=== PATIENT | female | born 1950 | race Caucasian/White ===

== ENCOUNTER 2024-05-15 11:07 | Outpatient (CLI) | payer MEDICARE, OTHER, SELFPAY ==
--- OUTSIDE RECORDS SUMMARY | 2024-05-15 12:01 | XMS_ITS | Encounter Summary ---
Author Organization [employer] Address [address] [place] [address] Care Team Providers Care Management Instructor Name Role Phone Santos Morgan MD Primary Care Provider Un available Encounter Details Date Type Department Care Team (Latest Contact Info) Description 04/04/2005 Inpatient Historical [facility] Chano Ghotra MD NO ADDRESS ON FILE ACQ SPONDYLOLISTHESIS (Primary Dx) Social History Tobacco Use Types Packs/Day Years Used Date Smoking Tobacco: Never Assessed Comments Unknown Sex and Gender Information Value Date Recorded Sex Assigned at Not on file Legal Sex Female 5:02 AM DOGMAN/WOMAN Gender Identity Not on file Sexual Orientation Not on file documented as of this encounter Plan of Treatment Not on file documented as of this encounter Procedures Procedure Name Priority Date/Time Associated Diagnosis Comments URINALYSIS W/REFLEX MICROSCOPIC Routine 04/06/2005 5:39 PM DOGMAN/WOMAN CBC WITH DIFFERENTIAL Routine 04/06/2005 5:40 AM DOGMAN/WOMAN CBC WITH DIFFERENTIAL Routine 04/06/2005 5:40 AM DOGMAN/WOMAN BASIC METABOLIC PANEL Routine 04/06/2005 5:40 AM DOGMAN/WOMAN CBC WITH DIFFERENTIAL Routine 04/05/2005 4:40 AM DOGMAN/WOMAN CBC WITH DIFFERENTIAL Routine 04/05/2005 4:40 AM DOGMAN/WOMAN BASIC METABOLIC PANEL Routine 04/05/2005 4:40 AM DOGMAN/WOMAN PT AND APTT Routine 04/04/2005 11:50 AM DOGMAN/WOMAN CBC WITH DIFFERENTIAL Routine 04/04/2005 11:50 AM DOGMAN/WOMAN CBC WITH DIFFERENTIAL Routine 04/04/2005 11:50 AM DOGMAN/WOMAN SEDIMENTATION RATE Routine 04/04/2005 11 :50 AM DOGMAN/WOMAN COMPREHENSIVE METABOLIC PANEL Routine 04/04/2005 11:50 AM DOGMAN/WOMAN URINALYSIS W/REFLEX MICROSCOPIC Routine 04/04/2005 11:47 AM DOGMAN/WOMAN HEMOGLOBIN AND HEMATOCRIT Routine 03/27/2005 12:39 PM DOGMAN/WOMAN documented in this encounter Results * (ABNORMAL) URINALYSIS (04/06/2005 5:39 PM DOGMAN/WOMAN) COLOR UA Yellow INTERFACE SYSTEM CLARITY UA Clear Clear INTERFACE SYSTEM SPECIFIC GRAVITY UA 1.010 1.001 - 1.035 INTERFACE SYSTEM PH UA 7.5 5.0 - 8.0 INTERFACE SYSTEM LEUKOCYTE ESTERASE UA Negative Negative INTERFACE SYSTEM NITRITE UA Negative Negative INTERFACE SYSTEM PROTEIN UA Negative Negative INTERFACE SYSTEM GLUCOSE UA Negative Negative INTERFACE SYSTEM KETONES UA Negative Negative INTERFACE SYSTEM UROBILINOGEN UA <1 <1 mg/dL INTE RFACE SYSTEM BILIRUBIN UA Negative Negative INTERFA CE SYSTEM BLOOD UA 1+(A) Negative INTERFACE SYSTEM WBC UA 1 0 - 5 /HPF INTERFACE SYSTEM RBC UA 5(H) 0 - 4 /HPF INTERFACE SYSTEM 04/06/2005 5:39 PM DOGMAN/WOMAN Abner Huynh MD URINE ORDERABLES Final Result INTERFACE SYSTEM Refer to clinic/hospital department * (ABNORMAL) CBC WITH DIFFERENTIAL (04/06/2005 5:40 AM DOGMAN/WOMAN) NEUTROPHILS 72(H) 45 - 70 % INTERFAC E SYSTEM LYMPHOCYTES 19 16 - 45 % INTERFAC E SYSTEM MONOCYTES 8 3 - 13 % INTERFACE SYSTEM EOSINOPHILS 1 0 - 7 % INTERFAC E SYSTEM BASOPHILS 0 0 - 2 % INTERFACE SYSTEM NEUTROPHIL ABSOLUTE 6.43 1.90 - 7.00 K/uL INTERFACE SYSTEM LYMPHOCYTE ABSOLUTE 1.72 0.70 - 4.50 K/uL INTERFACE SYSTEM MONOCYTE ABSOLUTE 0.73 0.10 - 1.30 K/uL INTERFACE SYSTEM EOSINOPHIL ABSOLUTE 0.07 0.00 - 0.70 K/uL INTERFACE SYSTEM BASOPHILS ABSOLUTE 0.01 0.00 - 0.20 K/uL INTERFACE SYSTEM 04/06/2005 5:40 AM DOGMAN/WOMAN Abner Huynh MD HEMATOLOGY ORDERABLES Final Res ult Performing Organization Address City/[facility] de Phone Number INTERFACE SYSTEM Refer to clinic/hospital department * (ABNORMAL) CBC WITH DIFFERENTIAL (04/06/2005 5:40 AM DOGMAN/WOMAN) WBC 9.0 4.0 - 9.8 K/uL INTERFACE SYSTEM RBC 3.04(L) 3.90 - 4.90 M/uL INTERFACE SYSTEM HEMOGLOBIN 9.3(L) 11.8 - 14.8 g/dL INTERFACE SYSTEM HEMATOCRIT 28.3(L) 35.5 - 44.0 % INTERFACE SYSTEM MCV 93.1 82.0 - 99.0 fL INTERFACE SYSTEM MCH 30.6 27.2 - 32.6 pg INTERFACE SYSTEM MCHC 32.9 31.5 - 35.5 % INTERFACE SYSTEM RDW 13.8 11.5 - 14.5 % INTERFACE SYSTEM RDW-STDEV 46.6 37.1 - 48.7 fL INTERFACE SYSTEM PLATELETS 194 140 - 350 K/uL INTERFACE SYSTEM MPV 11.1 9.3 - 12.4 fL INTERFACE SYSTEM 04/06/2005 5:40 AM DOGMAN/WOMAN Abner Huynh MD HEMATOLOGY ORDERABLES Final Res ult Performing Organization Address [facility] de Phone Number INTERFACE SYSTEM Refer to clinic/hospital department * (ABNORMAL) BASIC METABOLIC PANEL (04/06/2005 5:40 AM DOGMAN/WOMAN) GLUCOSE 109 65 - 109 mg/dL INTERFACE SYSTEM CREATININE 0.8 0.4 - 1.2 mg/dL INTERFACE SYSTEM CALCIUM 8.3(L) 8.6 - 10.2 mg/dL INTERFACE SYSTEM BUN 9 6 - 20 mg/dL INTERFACE SYSTEM SODIUM 141 135 - 145 mmol/L INTERFACE SYSTEM POTASSIUM 4.0 3.5 - 4.9 mmol/L INTERFACE SYSTEM CHLORIDE 106 96 - 108 mmol/L INTERFACE SYSTEM CO2 29 22 - 30 mmol/L INTERFACE SYSTEM 04/06/2005 5:40 AM DOGMAN/WOMAN Abner Huynh MD CHEMISTRY ORDERABLES Final Resu lt Performing Organization Address [facility] Phone Number INTERFACE SYSTEM Refer to clinic/hospital department * (ABNORMAL) CBC WITH DIFFERENTIAL (04/05/2005 4:40 AM DOGMAN/WOMAN) NEUTROPHILS 75(H) 45 - 70 % INTERFAC E SYSTEM LYMPHOCYTES 19 16 - 45 % INTERFAC E SYSTEM MONOCYTES 6 3 - 13 % INTERFACE SYSTEM EOSINOPHILS 1 0 - 7 % INTERFAC E SYSTEM BASOPHILS 0 0 - 2 % INTERFACE SYSTEM NEUTROPHIL ABSOLUTE 5.48 1.90 - 7.00 K/uL INTERFACE SYSTEM LYMPHOCYTE ABSOLUTE 1.37 0.70 - 4.50 K/uL INTERFACE SYSTEM MONOCYTE ABSOLUTE 0.41 0.10 - 1.30 K/uL INTERFACE SYSTEM EOSINOPHIL ABSOLUTE 0.04 0.00 - 0.70 K/uL INTERFACE SYSTEM BASOPHILS ABSOLUTE 0.01 0.00 - 0.20 K/uL INTERFACE SYSTEM 04/05/2005 4:40 AM DOGMAN/WOMAN Abner Huynh MD HEMATOLOGY ORDERABLES Final Res ult Performing Organization Address [facility] Phone Number INTERFACE SYSTEM Refer to clinic/hospital department * (ABNORMAL) CBC WITH DIFFERENTIAL (04/05/2005 4:40 AM DOGMAN/WOMAN) WBC 7.3 4.0 - 9.8 K/uL INTERFACE SYSTEM RBC 2.84(L) 3.90 - 4.90 M/uL INTERFACE SYSTEM HEMOGLOBIN 8.9(L) 11.8 - 14.8 g/dL INTERFACE SYSTEM HEMATOCRIT 26.3(L) 35.5 - 44.0 % INTERFACE SYSTEM MCV 92.6 82.0 - 99.0 fL INTERFACE SYSTEM MCH 31.3 27.2 - 32.6 pg INTERFACE SYSTEM MCHC 33.8 31.5 - 35.5 % INTERFACE SYSTEM RDW 13.4 11.5 - 14.5 % INTERFACE SYSTEM RDW-STDEV 45.6 37.1 - 48.7 fL INTERFACE SYSTEM PLATELETS 206 140 - 350 K/uL INTERFACE SYSTEM MPV 10.7 9.3 - 12.4 fL INTERFACE SYSTEM 04/05/2005 4:40 AM DOGMAN/WOMAN Abner Huynh MD HEMATOLOGY ORDERABLES Final Res ult Performing Organization Address City/[facility]/ZIP Co de Phone Number INTERFACE SYSTEM Refer to clinic/hospital department * (ABNORMAL) BASIC METABOLIC PANEL (04/05/2005 4:40 AM DOGMAN/WOMAN) GLUCOSE 90 65 - 109 mg/dL INTERFACE SYSTEM CREATININE 0.8 0.4 - 1.2 mg/dL INTERFACE SYSTEM CALCIUM 8.7 8.6 - 10.2 mg/dL INTERFACE SYSTEM BUN 9 6 - 20 mg/dL INTERFACE SYSTEM SODIUM 140 135 - 145 mmol/L INTERFACE SYSTEM POTASSIUM 4.2 3.5 - 4.9 mmol/L INTERFACE SYSTEM CHLORIDE 105 96 - 108 mmol/L INTERFACE SYSTEM CO2 32(H) 22 - 30 mmol/L INTERFACE SYSTEM 04/05/2005 4:40 AM DOGMAN/WOMAN Abner Huynh MD CHEMISTRY ORDERABLES Final Resu lt Performing Organization Address [facility] Phone Number INTERFACE SYSTEM Refer to clinic/hospital department * CBC WITH DIFFERENTIAL (04/04/2005 11:50 AM DOGMAN/WOMAN) NEUTROPHILS 70 45 - 70 % INTERFAC E SYSTEM LYMPHOCYTES 23 16 - 45 % INTERFAC E SYSTEM MONOCYTES 5 3 - 13 % INTERFACE SYSTEM EOSINOPHILS 2 0 - 7 % INTERFAC E SYSTEM BASOPHILS 0 0 - 2 % INTERFACE SYSTEM NEUTROPHIL ABSOLUTE 4.47 1.90 - 7.00 K/uL INTERFACE SYSTEM LYMPHOCYTE ABSOLUTE 1.50 0.70 - 4.50 K/uL INTERFACE SYSTEM MONOCYTE ABSOLUTE 0.34 0.10 - 1.30 K/uL INTERFACE SYSTEM EOSINOPHIL ABSOLUTE 0.11 0.00 - 0.70 K/uL INTERFACE SYSTEM BASOPHILS ABSOLUTE 0.01 0.00 - 0.20 K/uL INTERFACE SYSTEM 04/04/2005 11:5 0 AM DOGMAN/WOMAN Chano Ghotra MD HEMATOLOGY ORDERABLES Final Res ult Performing Organization Address [facility] de Phone Number INTERFACE SYSTEM Refer to clinic/hospital department * CBC WITH DIFFERENTIAL (04/04/2005 11:50 AM DOGMAN/WOMAN) WBC 6.4 4.0 - 9.8 K/uL INTERFACE SYSTEM RBC 4.17 3.90 - 4.90 M/uL INTERFACE SYSTEM HEMOGLOBIN 13.0 11.8 - 14.8 g/dL INTERFACE SYSTEM HEMATOCRIT 38.6 35.5 - 44.0 % INTERFACE SYSTEM MCV 92.6 82.0 - 99.0 fL INTERFACE SYSTEM MCH 31.2 27.2 - 32.6 pg INTERFACE SYSTEM MCHC 33.7 31.5 - 35.5 % INTERFACE SYSTEM RDW 13.3 11.5 - 14.5 % INTERFACE SYSTEM RDW-STDEV 44.8 37.1 - 48.7 fL INTERFACE SYSTEM PLATELETS 298 140 - 350 K/uL INTERFACE SYSTEM MPV 11.2 9.3 - 12.4 fL INTERFACE SYSTEM 04/04/2005 11:5 0 AM DOGMAN/WOMAN Chano Ghotra MD HEMATOLOGY ORDERABLES Final Res ult Performing Organization Address [facility] Phone Number INTERFACE SYSTEM Refer to clinic/hospital department * (ABNORMAL) SEDIMENTATION RATE (04/04/2005 11:50 AM DOGMAN/WOMAN) ESR (SEDIMENTATION RATE) 42(H) 0 - 30 mm/hr INTERFACE SYSTEM 04/04/2005 11:5 0 AM DOGMAN/WOMAN Chano Ghotra MD HEMATOLOGY ORDERABLES Final Res ult Performing Organization Address [facility] de Phone Number INTERFACE SYSTEM Refer to clinic/hospital department * PT AND APTT (04/04/2005 11:50 AM DOGMAN/WOMAN) PROTIME 13.5 12.7 - 15.1 Seconds INTERFACE SYSTEM INR 0.9 0.9 - 1.1 INTERFACE SYSTEM Comment: INR Therapeutic Range: Adult: 2.0 - 3.0 for pulmonary embolism or prophylaxis against venous thrombosis or systemic embolization. 2.0 - 3.0 for patients with tissue heart valves. 2.5 - 3.5 for patients with mechanical heart valves or post UT. Pediatric (12 years and under): 1.5 - 3.0 Although the target range in children is not well established , INR values of 1.5 - 3.0 are recommended for most patients. Higher values have been used in children with prosthetic cardiac valves and hereditary clotting disorders. (<3 days) therapeutic ranges have not been established. PTT 28.0 24.4 - 36.4 Seconds INTERFACE SYSTEM Comment: PTT Therapeutic Range: Heparin Level PTT (seconds) <0.10 units/mL <53 0.10 - 0.30 units/mL 53 - 67 0.30 - 0.70 units/mL* 67 - 95* 0.70 - 1.00 units/mL 95 - 116 *corresponds to therapeutic range for unfractionated heparin 04/04/2005 11:5 0 AM DOGMAN/WOMAN Chano Ghotra MD HEMATOLOGY ORDERABLES Final Res ult INTERFACE SYSTEM Refer to clinic/hospital department * COMPREHENSIVE METABOLIC PANEL (04/04/2005 11:50 AM DOGMAN/WOMAN) GLUCOSE 90 65 - 109 mg/dL INTERFACE SYSTEM CREATININE 0.8 0.4 - 1.2 mg/dL INTERFACE SYSTEM CALCIUM 9.9 8.6 - 10.2 mg/dL INTERFACE SYSTEM AST 27 12 - 32 U/L INTERFACE SYSTEM ALKALINE PHOSPHATASE 74 35 - 104 U/L INTERFACE SYSTEM BILIRUBIN TOTAL 0.3 0.2 - 1.0 mg/dL INTERFACE SYSTEM ALBUMIN 4.8 3.4 - 4.8 g/dL INTERFACE SYSTEM TOTAL PROTEIN 7.9 6.3 - 8.6 g/dL INTERFACE SYSTEM ALT 25 0 - 31 U/L INTERFACE SYSTEM BUN 14 6 - 20 mg/dL INTERFACE SYSTEM SODIUM 140 135 - 145 mmol/L INTERFACE SYSTEM POTASSIUM 4.5 3.5 - 4.9 mmol/L INTERFACE SYSTEM CHLORIDE 103 96 - 108 mmol/L INTERFACE SYSTEM CO2 30 22 - 30 mmol/L INTERFACE SYSTEM 04/04/2005 11:5 0 AM DOGMAN/WOMAN us Chano Ghotra MD CHEMISTRY ORDERABLES Final Resu lt Performing Organization Address [facility] de Phone Number INTERFACE SYSTEM Refer to clinic/hospital department * (ABNORMAL) URINALYSIS (04/04/2005 11:47 AM DOGMAN/WOMAN) COLOR UA Yellow INTERFACE SYSTEM CLARITY UA Slt. Cloudy(A) Clear INTERFACE SYSTEM SPECIFIC GRAVITY UA 1.010 1.001 - 1.035 INTERFACE SYSTEM PH UA 5.0 5.0 - 8.0 INTERFACE SYSTEM LEUKOCYTE ESTERASE UA Negative Negative INTERFACE SYSTEM NITRITE UA Negative Negative INTERFACE SYSTEM PROTEIN UA Negative Negative INTERFACE SYSTEM GLUCOSE UA Negative Negative INTERFACE SYSTEM KETONES UA Negative Negative INTERFACE SYSTEM UROBILINOGEN UA <1 <1 mg/dL INTE RFACE SYSTEM BILIRUBIN UA Negative Negative INTERFA CE SYSTEM BLOOD UA Trace(A) Negative INTERFACE SYSTEM Comment:Verified by repeat a nalysis. WBC UA 1 0 - 5 /HPF INTERFACE SYSTEM RBC UA 1 0 - 4 /HPF INTERFACE SYSTEM EPITHELIAL CELLS, URINE 5-10 /HPF INTERFACE SYSTEM 04/04/2005 11:4 7 AM DOGMAN/WOMAN Chano Ghotra MD URINE ORDERABLES Final Result Performing Organization Address [facility] Phone Number INTERFACE SYSTEM Refer to clinic/hospital department * (ABNORMAL) HEMOGLOBIN AND HEMATOCRIT (03/27/2005 12:39 PM DOGMAN/WOMAN) HEMOGLOBIN 11.2(L) 11.8 - 14.8 g/dL INTERFACE SYSTEM HEMATOCRIT 33.3(L) 35.5 - 44.0 % INTERFACE SYSTEM 03/27/2005 12:3 9 PM DOGMAN/WOMAN Chano Ghotra MD HEMATOLOGY ORDERABLES Final Res ult Performing Organization Address [facility] Co de Phone Number INTERFACE SYSTEM Refer to clinic/hospital department documented in this encounter Visit Diagnoses Diagnosis Acquired spondylolisthesis- Primary documented in this encounter Care Teams Management Instructor Relationship Specialty Start Date End Date Santos Morgan MD PCP - General 10/07/08 documented as of this encounter
--- OUTSIDE RECORDS SUMMARY | 2024-05-15 12:01 | XMS_ITS | Encounter Summary ---
Author Organization [facility] Address [address] [place] [address] Care Team Providers Care Regional Telecommunications Specialist Name Role Phone Santos Morgan MD Primary Care Provider Un available Encounter Details Date Type Department Care Team (Late st Contact Info) Description 03/27/[address] [facility] Support Serv. ([facility]t Cardiology[facility]) [address] 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
--- OUTSIDE RECORDS SUMMARY | 2024-05-15 12:01 | XMS_ITS | Encounter Summary ---
Author Organization [facility] Address 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
--- OUTSIDE RECORDS SUMMARY | 2024-05-15 12:01 | XMS_ITS | Encounter Summary ---
Author Organization [employer] Address [address] [place] [address] Care Team Providers Care Message And Delivery Service Pricer Name Role Phone Santos Morgan MD Primary Care Provider Un available Encounter Details Date Type Department Care Team (Late st Contact Info) Description 03/14/2005 Outpatient Historical [facility] WAITRESS Shama Garcia MD [address] [place] [address] Chano Ghotra MD NO ADDRESS ON FILE SPINAL STENOSIS-LUMBAR (Primary Dx) Social History Tobacco Use Types Packs/Day Years Used Date Smoking Tobacco: Never Assessed Comments Unknown Sex and Gender Information Value Date Recorded Sex Assigned at Not on file 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
--- OUTSIDE RECORDS SUMMARY | 2024-05-15 12:01 | XMS_ITS | Encounter Summary ---
Author Organization [facility] Address [address] [place] [address] Care Team Providers Care Book Shelver Name Role Phone Santos Morgan MD Primary Care Provider Un available Encounter Details Date Type Department Care Team (Late st Contact Info) Description 04/05/2005 Outpatient Historical [facility] Adult Hospitalists [facility] [address] [place] [address] Slava Chaidez MD [address] [place] [phone] Social History Tobacco Use Types Packs/Day Years Used Date Smoking Tobacco: Never Assessed Comments Unknown Sex and Gender Information Value Date Recorded Sex Assigned at Not on file Legal Sex Female 5:02 AM DIRECTOR OF FINANCE Gender Identity Not on file Sexual Orientation Not on file documented as of this encounter Plan of Treatment Not on file documented as of this encounter Visit Diagnoses Not on filedocumented in this encounter Care Teams Book Shelver Relationship Specialty Start Date End Date Santos Morgan MD PCP - General 10/07/08 documented as of this encounter
--- OUTSIDE RECORDS SUMMARY | 2024-05-15 12:01 | XMS_ITS | Encounter Summary ---
Author Organization [facility] Address [address] [place] [address] Care Team Providers Care Car Dumper Name Role Phone Santos Morgan MD Primary Care Provider Un available Encounter Details Date Type Department Care Team (Latest Contact Info) Description 02/23/2005 Outpatient Historical [facility] Asia Morgan LUMBAR DISC DISPLACEMENT (Primary Dx) Social History Tobacco Use Types Packs/Day Years Used Date Smoking Tobacco: Never Assessed Comments Unknown Sex and Gender Information Value Date Recorded Sex Assigned at Not on file Legal Sex Female 5:02 AM PATIENT CARE PROVIDER Gender Identity Not on file Sexual Orientation Not on file documented as of this encounter Plan of Treatment Not on file documented as of this encounter Visit Diagnoses Diagnosis Displacement of lumbar intervertebral disc without myelopathy- Primary documented in this encounter Care Teams Car Dumper Relationship Specialty Start Date End Date Santos Morgan MD PCP - General 10/07/08 documented as of this encounter
--- OUTSIDE RECORDS SUMMARY | 2024-05-15 12:01 | XMS_ITS | Continuity of Care Document ---
Author Organization [facility] Address [address] [place] [address] Phone Care Team Providers Care Head Boys Golf Coach Name Role Phone Rambo Perez MD Unavailable Unavailable Allergies, Adverse Reactions, Alerts Substance Reaction Status Criticality No Known Allergies Active No Inform ation Medications Medication Instructions Dosage Effective Dates (start - stop) Status Comments [place] 5 mg-325 mg tablet take 1 tablet by oral route every 6 hours as needed for pain - Active LEVOTHYROXINE SODIUM (unknown strength) Not Available - Active HYDROCODONE-ACETAMIN OPHEN (unknown strength) Not Available - Active Procedures Procedure Date POSTOP FOLLOW-UP VISIT POSTOP FOLLOW-UP VISIT POSTOP FOLLOW-UP VISIT OFFICE/OUTPATIENT VISIT NEW Advance Directives Directive Yes / No Effective Date File Name No Information Encounters Encounter Description Practice Location Reason(s) For Visit Diagnoses Date Provider Providers Copied on Encounter [facility], [address] [facility] [address], [address], [place] tel:[phone] [facility] Follow Up of L humerus fx (chief complaint) Other closed nondisplaced fracture of proximal end of left humerus with routine healing, subsequent encounter 6 Chris Ricks. [address] [place] [address] [address], [place], [place], [id number] . tel: [phone] [facility], [address], [place], [address], [place] tel:[phone] [facility] Other closed nondisplaced fracture of proximal end of left humerus with routine healing, subsequent encounter 6 Chris Ricks. [address], [place], [place], [id number] . tel: [phone] [facility], [address] [place] [address] [address], [place], [address], tel:[phone] [facility] Acute pain of left shoulder May- 6 Chris Ricks. [address], [place], [place], [id number] . tel: [phone] OFFICE/OUTPAT IENT VISIT [facility], [address], [place], [address], tel:[phone] [facility] Other closed nondisplaced fracture of proximal end of left humerus, initial encounter 6 Chris Ricks. [address], [place], [place], [id number] . tel: [phone] Family History Family Member Type Diagnosis Age At Onset Mother Problem (finding) Alive and well Payers Payer name Insurance type Covered constitution party ID Authorjessica georgehussein(s) [facility] OT [id number] Social History Type Description Quantity Date Captured Comments Alcohol Use Details Unknown Caffeine Use Details Unknown Tobacco Use Status No Information Smoking Status No Information Sex Female Chief Complaint And Reason For Visit From encounter dated '07/26/2015 13:55'. Follow Up of L humerus fx (chief complaint) Reason For Referral Reason For Referral No Information Plan Of Treatment Date Type Action Status Referral Ordered: RADEX JOSIANE COMPL MINIMUM 2 VIEWS LT ordered History Of Present Illness Encounter Date Complaint History Of Prese nt Illness No Information Functional Status Date Functional Assessmen t No Information Instructions Date Instruction Additional Infor mation Elevate extremity above heart. R elated to Other closed nondisplaced fracture of proximal end of left humerus with routine healing, subsequent encounter Immobilize as directed. Related to Other closed nondisplaced fracture of proximal end of left humerus with routine healing, subsequent encounter Apply ice as tolerated. Related to Other closed nondisplaced fracture of proximal end of left humerus with routine healing, subsequent encounter Take medication as directed. Rel ated to Other closed nondisplaced fracture of proximal end of left humerus with routine healing, subsequent encounter Elevate extremity above heart. R elated to Other nondisplaced fracture of upper end of left humerus, subsequent encounter for fracture with routine healing Immobilize as directed. Related to Other nondisplaced fracture of upper end of left humerus, subsequent encounter for fracture with routine healing Immobilize as directed. Related to Other closed nondisplaced fracture of proximal end of left humerus, initial encounter Apply ice as tolerated. Related to Other closed nondisplaced fracture of proximal end of left humerus, initial encounter Assessments Type Assessment Date assessment Other closed nondisp laced fracture of proximal end of left humerus with routine healing, subsequent encounter Patient Care Teams Name Effective Dates (start - stop) Status Members No Information
--- OUTSIDE RECORDS SUMMARY | 2024-05-15 12:01 | XMS_ITS | Encounter Summary ---
Author Organization [facility] Address [address] [place] [address] Care Team Providers Care Extension Service Advisor Name Role Phone Santos Morgan MD Primary Care Provider Un available Encounter Details Date Type Department Care Team (Late st Contact Info) Description 09/16/[address] 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
--- OUTSIDE RECORDS SUMMARY | 2024-05-15 12:01 | XMS_ITS | Clinical Summary ---
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 Gender Identity Not on file Sexual Orientation Not on file Plan of Treatment Health Maintenance Due Date Last Done Comments DTAP/TDAP/TD VACCINES (1 - Tdap) 05/23/1970 BREAST CANCER SCREENING 1991 COLORECTAL SCREENING 05/23/1996 Colorectal Cancer Screening 05/23/1996 FIT-DNA Q 3 years 05/23/1996 FIT/FOBT Q 1 year 05/23/1996 Flex Sig/CT Colonography Q 5 years 05/23/1996 PNEUMOCOCCAL VACCINE 50+ YEARS (1 of 1 - PCV) 05/24/19 02 ZOSTER VACCINE (1 of 2) 05/23/2001 OSTEOPOROSIS SCREENING 05/23/2016 INFLUENZA VACCINE (#1) 2023 RSV VACCINE (60+ or ) (1 - 1-dose 75+ series) 05/23/2026 Care Teams Program Professional Relationship Specialty Start Date End Date Santos Morgan MD PCP - General 10/07/08
--- OUTSIDE RECORDS SUMMARY | 2024-05-15 12:01 | XMS_ITS | Encounter Summary ---
Author Organization [facility] Address 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
--- OUTSIDE RECORDS SUMMARY | 2024-05-15 12:01 | XMS_ITS | Encounter Summary ---
Author Organization [facility] Address [address] [place] [address] Care Team Providers Care Tool And Die Supervisor Name Role Phone Santos Morgan MD Primary Care Provider Un available Encounter Details Date Type Department Care Team (Late st Contact Info) Description 04/04/2005 Outpatient Historical [facility] Adult Hospitalists [facility] [address] [place] [phone] [place] [address] [address] Social History Tobacco Use Types Packs/Day Years Used Date Smoking Tobacco: Never Assessed Comments Unknown Sex and Gender Information Value Date Recorded Sex Assigned at Not on file 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
--- OUTSIDE RECORDS SUMMARY | 2024-05-15 12:01 | XMS_ITS | Encounter Summary ---
Author Organization [facility] Address 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
--- OUTSIDE RECORDS SUMMARY | 2024-05-15 12:01 | XMS_ITS | Encounter Summary ---
Author Organization [employer] Address 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 Gender Identity Not on file Sexual Orientation Not on file documented as of this encounter Plan of Treatment Not on file documented as of this encounter Procedures Procedure Name Priority Date/Time Associated Diagnosis Comments PROTIME-INR Routine 09/17/2005 6:46 AM CDT HEMOGLOBIN AND HEMATOCRIT Routine 09/16/2005 5:02 AM CDT PROTIME-INR Routine 09/16/2005 5:02 AM CDT URINALYSIS W/REFLEX MICROSCOPIC Routine 09/15/2005 4:30 AM CDT CBC WITH DIFFERENTIAL Routine 09/15/2005 4:16 AM CDT CBC WITH DIFFERENTIAL Routine 09/15/2005 4:16 AM CDT PROTIME-INR Routine 09/15/2005 4:16 AM CDT C-REACTIVE PROTEIN Routine 09/15/2005 4: 16 AM CDT BASIC METABOLIC PANEL Routine 09/15/2005 4:16 AM CDT HEMOGLOBIN AND HEMATOCRIT Routine 09/14/2005 9:40 PM CDT HEMOGLOBIN AND HEMATOCRIT Routine 09/04/2005 10:10 AM CDT documented in this encounter Results * (ABNORMAL) PROTIME-INR (09/17/2005 6:46 AM CDT) PROTIME 19.2(H) 12.7 - 15.1 Seconds INTERFACE SYSTEM INR 1.5(H) 0.9 - 1.1 INTERFACE SYSTEM Comment: INR Therapeutic Range: Adult: 2.0 - 3.0 for pulmonary embolism or prophylaxis against venous thrombosis or systemic embolization. 2.0 - 3.0 for patients with tissue heart valves. 2.5 - 3.5 for patients with mechanical heart valves or post [place]. Pediatric (12 years and under): 1.5 - 3.0 Although the target range in children is not well established , INR values of 1.5 - 3.0 are recommended for most patients. Higher values have been used in children with prosthetic cardiac valves and hereditary clotting disorders. (<3 days) therapeutic ranges have not been established. 09/17/2005 6:46 AM CDT us Kristian Mccray MD HEMATOLOGY ORDERABLES Final Resu lt INTERFACE SYSTEM Refer to clinic/hospital department * (ABNORMAL) PROTIME-INR (09/16/2005 5:02 AM CDT) PROTIME 18.3(H) 12.7 - 15.1 Seconds INTERFACE SYSTEM INR 1.4(H) 0.9 - 1.1 INTERFACE SYSTEM Comment: INR Therapeutic Range: Adult: 2.0 - 3.0 for pulmonary embolism or prophylaxis against venous thrombosis or systemic embolization. 2.0 - 3.0 for patients with tissue heart valves. 2.5 - 3.5 for patients with mechanical heart valves or post [place]. Pediatric (12 years and under): 1.5 - 3.0 Although the target range in children is not well established , INR values of 1.5 - 3.0 are recommended for most patients. Higher values have been used in children with prosthetic cardiac valves and hereditary clotting disorders. (<3 days) therapeutic ranges have not been established. 09/16/2005 5:02 AM CDT us Kristian Mccray MD HEMATOLOGY ORDERABLES Final Resu lt Performing Organization Address [facility] Phone Number INTERFACE SYSTEM Refer to clinic/hospital department * (ABNORMAL) HEMOGLOBIN AND HEMATOCRIT (09/16/2005 5:02 AM CDT) HEMOGLOBIN 8.7(L) 11.8 - 14.8 g/dL INTERFACE SYSTEM HEMATOCRIT 25.3(L) 35.5 - 44.0 % INTERFACE SYSTEM 09/16/2005 5:02 AM CDT us Kristian Mccray MD HEMATOLOGY ORDERABLES Final Resu lt Performing Organization Address [facility] Phone Number INTERFACE SYSTEM Refer to clinic/hospital department * URINALYSIS (09/15/2005 4:30 AM CDT) COLOR UA Yellow INTERFACE SYSTEM CLARITY UA Clear Clear INTERFACE SYSTEM SPECIFIC GRAVITY UA 1.005 1.001 - 1.035 INTERFACE SYSTEM PH UA 5.0 5.0 - 8.0 INTERFACE SYSTEM LEUKOCYTE ESTERASE UA Negative Negative INTERFACE SYSTEM NITRITE UA Negative Negative INTERFACE SYSTEM PROTEIN UA Negative Negative INTERFACE SYSTEM GLUCOSE UA Negative Negative INTERFACE SYSTEM KETONES UA Negative Negative INTERFACE SYSTEM UROBILINOGEN UA <1 <=1 mg/dL INTE RFACE SYSTEM BILIRUBIN UA Negative Negative INTERFA CE SYSTEM BLOOD UA Negative Negative INTERFACE SYSTEM 09/15/2005 4:30 AM CDT us Eduin Lott MD URINE ORDERABLES Final Re sult Performing Organization Address [facility] de Phone Number INTERFACE SYSTEM Refer to clinic/hospital department * (ABNORMAL) CBC WITH DIFFERENTIAL (09/15/2005 4:16 AM CDT) NEUTROPHILS 73(H) 45 - 70 % INTERFAC E SYSTEM LYMPHOCYTES 20 16 - 45 % INTERFAC E SYSTEM MONOCYTES 7 3 - 13 % INTERFACE SYSTEM EOSINOPHILS 0 0 - 7 % INTERFAC E SYSTEM BASOPHILS 0 0 - 2 % INTERFACE SYSTEM NEUTROPHIL ABSOLUTE 4.79 1.90 - 7.00 K/uL INTERFACE SYSTEM LYMPHOCYTE ABSOLUTE 1.31 0.70 - 4.50 K/uL INTERFACE SYSTEM MONOCYTE ABSOLUTE 0.49 0.10 - 1.30 K/uL INTERFACE SYSTEM EOSINOPHIL ABSOLUTE 0.01 0.00 - 0.70 K/uL INTERFACE SYSTEM BASOPHILS ABSOLUTE 0.00 0.00 - 0.20 K/uL INTERFACE SYSTEM 09/15/2005 4:16 AM CDT Eduin Lott MD HEMATOLOGY ORDERABLES Fin al Result Performing Organization Address [facility] de Phone Number INTERFACE SYSTEM Refer to clinic/hospital department * (ABNORMAL) CBC WITH DIFFERENTIAL (09/15/2005 4:16 AM CDT) WBC 6.6 4.0 - 9.8 K/uL INTERFACE SYSTEM RBC 2.98(L) 3.90 - 4.90 M/uL INTERFACE SYSTEM HEMOGLOBIN 9.3(L) 11.8 - 14.8 g/dL INTERFACE SYSTEM HEMATOCRIT 27.3(L) 35.5 - 44.0 % INTERFACE SYSTEM MCV 91.6 82.0 - 99.0 fL INTERFACE SYSTEM MCH 31.2 27.2 - 32.6 pg INTERFACE SYSTEM MCHC 34.1 31.5 - 35.5 % INTERFACE SYSTEM RDW 14.2 11.5 - 14.5 % INTERFACE SYSTEM RDW-STDEV 47.3 37.1 - 48.7 fL INTERFACE SYSTEM PLATELETS 215 140 - 350 K/uL INTERFACE SYSTEM MPV 11.5 9.3 - 12.4 fL INTERFACE SYSTEM 09/15/2005 4:16 AM CDT Eduin Lott MD HEMATOLOGY ORDERABLES Fin al Result Performing Organization Address [facility]/ZIP Co de Phone Number INTERFACE SYSTEM Refer to clinic/hospital department * (ABNORMAL) BASIC METABOLIC PANEL (09/15/2005 4:16 AM CDT) GLUCOSE 117(H) 65 - 99 mg/dL INTERFACE SYSTEM CREATININE 0.7 0.4 - 1.2 mg/dL INTERFACE SYSTEM CALCIUM 8.3(L) 8.6 - 10.2 mg/dL INTERFACE SYSTEM BUN 12 6 - 20 mg/dL INTERFACE SYSTEM SODIUM 140 135 - 145 mmol/L INTERFACE SYSTEM POTASSIUM 3.8 3.5 - 4.9 mmol/L INTERFACE SYSTEM CHLORIDE 105 96 - 108 mmol/L INTERFACE SYSTEM CO2 24 22 - 30 mmol/L INTERFACE SYSTEM 09/15/2005 4:16 AM CDT us Eduin Lott MD CHEMISTRY ORDERABLES Lisette l Result Performing Organization Address [facility] Phone Number INTERFACE SYSTEM Refer to clinic/hospital department * (ABNORMAL) C-REACTIVE PROTEIN (09/15/2005 4:16 AM CDT) CRP 5.1(H) 0.0 - 0.8 mg/dL INTERFACE SYSTEM 09/15/2005 4:16 AM CDT us Eduin Lott MD CHEMISTRY ORDERABLES Lisette l Result Performing Organization Address [facility] Phone Number INTERFACE SYSTEM Refer to clinic/hospital department * (ABNORMAL) PROTIME-INR (09/15/2005 4:16 AM CDT) PROTIME 15.5(H) 12.7 - 15.1 Seconds INTERFACE SYSTEM INR 1.1 0.9 - 1.1 INTERFACE SYSTEM Comment: INR Therapeutic Range: Adult: 2.0 - 3.0 for pulmonary embolism or prophylaxis against venous thrombosis or systemic embolization. 2.0 - 3.0 for patients with tissue heart valves. 2.5 - 3.5 for patients with mechanical heart valves or post [place]. Pediatric (12 years and under): 1.5 - 3.0 Although the target range in children is not well established , INR values of 1.5 - 3.0 are recommended for most patients. Higher values have been used in children with prosthetic cardiac valves and hereditary clotting disorders. (<3 days) therapeutic ranges have not been established. 09/15/2005 4:16 AM CDT us Kristian Mccray MD HEMATOLOGY ORDERABLES Final Resu lt Performing Organization Address [facility] Phone Number INTERFACE SYSTEM Refer to clinic/hospital department * (ABNORMAL) HEMOGLOBIN AND HEMATOCRIT (09/14/2005 9:40 PM CDT) HEMOGLOBIN 9.5(L) 11.8 - 14.8 g/dL INTERFACE SYSTEM HEMATOCRIT 28.2(L) 35.5 - 44.0 % INTERFACE SYSTEM 09/14/2005 9:40 PM CDT Jaspal Leija MD HEMATOLOGY ORDERABLES Final Re sult Performing Organization Address [facility] Phone Number INTERFACE SYSTEM Refer to clinic/hospital department * (ABNORMAL) HEMOGLOBIN AND HEMATOCRIT (09/04/2005 10:10 AM CDT) HEMOGLOBIN 11.9 11.8 - 14.8 g/dL INTERFACE SYSTEM HEMATOCRIT 35.4(L) 35.5 - 44.0 % INTERFACE SYSTEM 09/04/2005 10:1 0 AM CDT Kristian Mccray MD HEMATOLOGY ORDERABLES Final Resu lt Performing Organization Address [facility] Phone Number INTERFACE SYSTEM Refer to clinic/hospital department documented in this encounter Visit Diagnoses Diagnosis Osteoarthrosis, unspecified whether generalized or localized, pelvic region and thigh- Primary documented in this encounter Care Teams Perl Developer Relationship Specialty Start Date End Date Santos Morgan MD PCP - General 10/07/08 documented as of this encounter
[2024-05-15 19:15] LABS: Basophils Percent Auto 0.5 % (0.2-1.2); Eosinophils Absolute Auto 0.2 K/mm3 (0-0.3); Hematocrit 42.4 % (37.0-47.0); Hemoglobin 13.6 g/dL (12.0-15.0); Immature Granulocyte Absolute 0.03 K/mm3 (0.00-0.031); Immature Granulocyte Percent A 0.4 % (0-0.5); Lymphocytes Absolute Auto 2.06 K/mm3 (0.9-3.2); Mean Corpuscular HGB Conc 32.1 g/dl (32-36); Mean Corpuscular Hemoglobin 32.4 pg (26-34); Mean Platelet Volume 11.4 fl (7.4-10.4); Monocytes Absolute Auto 0.6 K/mm3 (0.1-0.6); Neutrophils Absolute Auto 4.5 K/mm3 (1.3-6.7); Neutrophils Percent Auto 61.1 % (45.5-73.1); Platelet Count Result 242 k/mm3 (150-375); Red Cell Distribution Width 13.2 % (11.5-14.5); White Blood Count 7.4 K/mm3 (4.5-10.0)
[2024-05-15 19:25] LABS: Alanine Aminotransferase 25 U/L (6-35); Albumin Level 4.6 g/dL (3.5-5.1); Alkaline Phosphatase 77 U/L (38-126); Anion Gap 8 mmol/L (4-12); Aspartate Amino Transferase 42 U/L (14-36); Bilirubin,Total 0.5 mg/dL (0.2-1.3); Blood Urea Nitrogen 17 mg/dL (7-17); Calcium 9.4 mg/dL (8.4-10.2); Carbon Dioxide 26 mmol/L (22-30); Chloride 100 mmol/L (98-107); Cholesterol 239 mg/dL (0-200); Estimated Glomerular Filt Rate > 60; Glucose 81 mg/dL (65-110); HDL Direct 104 mg/dL; Potassium 4.5 mmol/L (3.4-5.0); Sodium 134 mmol/L (137-145); Triglycerides 66 mg/dL (<150)
[2024-05-15 19:35] LABS: LDL Cholesterol Direct 109 mg/dL
[2024-05-15 19:52] LABS: Thyroid Stimulating Hormone 0.924 uIU/mL (0.465-4.680)
[2024-05-15 20:12] LABS: Free T3 3.28 pg/mL (2.45-5.93); Free T4 Free Thyroxine 1.37 ng/dL (0.78-2.19); Vitamin D 25 Hydroxy 36.4 ng/mL
== END 2024-05-15 11:08 | disposition home or self-care (01) ==
LOC: ANHGOSHLAB 11:08
PROVIDERS: PCP Internal Medicine; Visit Provider Nurse Practitioner
DX: E87.1 Hypo-osmolality and hyponatremia (principal); I10 Essential (primary) hypertension; E03.9 Hypothyroidism, unspecified; E55.9 Vitamin D deficiency, unspecified
CPT/HCPCS: 36415; 80053; 80061; 82306; 84439; 84443; 84481; 85025